=== PATIENT | male | born 1950 | race Caucasian/White ===

== ENCOUNTER 2019-06-27 17:08 | Inpatient (IN) | payer MEDICARE, OTHER ==
[~2019-06-27] VITALS: Ht 185.4 cm; Wt 115.8 kg
--- OUTSIDE RECORDS SUMMARY | 2019-06-27 17:11 | XMS REPORT ---
Author Author [facility] Address Unknown Phone Unavailable Care Team Providers Care Software Quality Test Engineer Name Role Phone Unavailable Unavailable Payers Payer Name Policy Type Policy Number Effective Date Expiration Date Problems This patient has no known problems. Allergies, Adverse Reactions, Alerts Allergy Name Allergy Type Status Severity Reaction(s) Onset Date Inactive Date Treating Clinician Comments No Known Allergies DA Active U 2019-03-15 00:00:00 Medications This patient has no known medications. Results Test Description Test Time Test Comments Text Results Atomic Results Result Comments CBC W/AUTO DIFF 2019-03-17 08:35:00 WHITE BLOOD CELL (test code=WBC) 7.99 x10 3/uL 4.5-11.0 RED BLOOD CELL (test code=RBC) 4.49 x10 6/uL 4.00-5.60 HEMOGLOBIN (test code=HGB) 12.1 g/dL 12.5-16.9 HEMATOCRIT (test code=HCT) 37.0 % 37.5-50.7 MEAN CELL VOLUME (test code=MCV) 82.4 fL 81.0-99.0 MEAN CELL HGB (test code=MCH) 26.9 pg 27.0-33.0 MEAN CELL HGB CONCETRATION (test code=MCHC) 32.7 g/dL 33.0-37.0 RED CELL DISTRIBUTION WIDTH CV (test code=RDW) 13.2 % 11.5-14.5 RED CELL DISTRIBUTION WIDTH SD (test code=RDW-SD) 40.2 fL 37.0-54.0 PLATELET COUNT (test code=PLT) 183 x10 3/uL 150-400 MEAN PLATELET VOLUME (test code=MPV) 10.1 fL 7.0-9.0 NEUTROPHIL % (test code=NT%) 67.7 % 56.0-77.0 IMMATURE GRANULOCYTE % (test code=IG%) 0.4 % 0.0-2.0 LYMPHOCYTE % (test code=LY%) 17.9 % 14.0-32.0 MONOCYTE % (test code=MO%) 10.4 % 4.8-9.0 EOSINOPHIL % (test code=EO%) 3.1 % 0.3-3.7 BASOPHIL % (test code=BA%) 0.5 % 0.0-2.0 NUCLEATED RBC % (test code=NRBC%) 0.0 % 0-0 NEUTROPHIL # (test code=NT#) 5.41 x10 3/uL 2.0-7.6 IMMATURE GRANULOCYTE # (test code=IG#) 0.03 x10 3/uL 0.00-0.03 LYMPHOCYTE # (test code=LY#) 1.43 x10 3/uL 1.0-3.8 MONOCYTE # (test code=MO#) 0.83 x10 3/uL 0.1-0.8 EOSINOPHIL # (test code=EO#) 0.25 x10 3/uL 0.0-0.2 BASOPHIL # (test code=BA#) 0.04 x10 3/uL 0.0-0.2 NUCLEATED RBC # (test code=NRBC#) 0.00 x10 3/uL 0.0-0.1 MANUAL DIFF REQUIRED (test code=MDIFF) NO BASIC METABOLIC [id number] 08:18:00* Test Item Value Reference Range Comments SODIUM (test code=NA) 140 mEq/L 134-147 POTASSIUM (test code=K) 4.1 mEq/L 3.4-5.0 CHLORIDE (test code=CL) 109 mEq/L 100-108 CARBON DIOXIDE (test code=CO2) 25 mEq/L 21-33 ANION GAP (test code=GAP) 10 0-20 GLUCOSE (test code=GLU) 93 mg/dL 70-110 BLOOD UREA NITROGEN (test code=BUN) 14 mg/dL 7-18 GLOMERULAR FILTRATION RATE (test code=GFR) 54.7 80-90 Units of measure=ml/min/1.73 m2 CREATININE (test code=CREAT) 1.3 mg/dL 0.6-1.3 CALCIUM (test code=CA) 8.0 mg/dL 8.0-10.5 PROTHROMBIN [id number] 06:42:00* Test Item Value Reference Range Comments PROTHROMBIN TIME PATIENT (test code=PTP) 13.4 SECONDS 9.3-12.9 INTERNATIONAL NORMAL RATIO (test code=INR) 1.2 0.8-1.2 TARGET INR BY INDICATION Indication INR1. Prophylaxis of venous thrombosis 2.0 - 3.0 (orthopedic surgery), Prophylaxis of venous thrombosis (other than high-risk surgery), Treatment of Deep Vein Thrombosis/Pulmonary Embolism, Prevention of systemic embolism - Tissue heart valves, Acute Myocardial Infarction (to prevent systemic embolism), Valvular heart disease, Atrial Fibrillation, Bileaflet mechanical valve in aortic position.2. Mechanical prosthetic valves (high risk), 2.5 - 3.5 Presence of Lupus Anticoagulant or Antiphospholipid Antibodies, Prevention of systemic embolism - Acute Myocardial Infarction (to prevent recurrent infarct). THROMBOPLASTIN TIME [id number] 06:42:00* Test Item Value Reference Range Comments THROMBOPLASTIN TIME PARTIAL (test code=PTT) 29.4 Seconds 25.0-39.5 Therapeutic Range: 50.4 - 88.3 Seconds Effective 11/27/2018 AG PROSTATE [id number] 15:41:00* Test Item Value Reference Range Comments AG PROSTATE SPECIFIC (test code=PSA) 4.9 ng/mL 0.05-4.0 AG PROSTATE [id number] 15:40:00* Test Item Value Reference Range Comments AG PROSTATE SPECIFIC (test code=PSA) 4.9 ng/mL 0.05-4.0 BASIC METABOLIC [id number] 05:17:00* Test Item Value Reference Range Comments SODIUM (test code=NA) 142 mEq/L 134-147 POTASSIUM (test code=K) 4.0 mEq/L 3.4-5.0 CHLORIDE (test code=CL) 108 mEq/L 100-108 CARBON DIOXIDE (test code=CO2) 26 mEq/L 21-33 ANION GAP (test code=GAP) 12 0-20 GLUCOSE (test code=GLU) 91 mg/dL 70-110 BLOOD UREA NITROGEN (test code=BUN) 19 mg/dL 7-18 GLOMERULAR FILTRATION RATE (test code=GFR) 37.6 80-90 Units of measure=ml/min/1.73 m2 CREATININE (test code=CREAT) 1.8 mg/dL 0.6-1.3 CALCIUM (test code=CA) 7.9 mg/dL 8.0-10.5 CBC W/AUTO [id number] 04:49:00* Test Item Value Reference Range Comments WHITE BLOOD CELL (test code=WBC) 9.90 x10 3/uL 4.5-11.0 RED BLOOD CELL (test code=RBC) 4.85 x10 6/uL 4.00-5.60 HEMOGLOBIN (test code=HGB) 13.0 g/dL 12.5-16.9 HEMATOCRIT (test code=HCT) 40.5 % 37.5-50.7 MEAN CELL VOLUME (test code=MCV) 83.5 fL 81.0-99.0 MEAN CELL HGB (test code=MCH) 26.8 pg 27.0-33.0 MEAN CELL HGB CONCETRATION (test code=MCHC) 32.1 g/dL 33.0-37.0 RED CELL DISTRIBUTION WIDTH CV (test code=RDW) 13.6 % 11.5-14.5 RED CELL DISTRIBUTION WIDTH SD (test code=RDW-SD) 41.3 fL 37.0-54.0 PLATELET COUNT (test code=PLT) 209 x10 3/uL 150-400 MEAN PLATELET VOLUME (test code=MPV) 10.1 fL 7.0-9.0 NEUTROPHIL % (test code=NT%) 63.6 % 56.0-77.0 IMMATURE GRANULOCYTE % (test code=IG%) 0.3 % 0.0-2.0 LYMPHOCYTE % (test code=LY%) 20.5 % 14.0-32.0 MONOCYTE % (test code=MO%) 11.2 % 4.8-9.0 EOSINOPHIL % (test code=EO%) 3.8 % 0.3-3.7 BASOPHIL % (test code=BA%) 0.6 % 0.0-2.0 NUCLEATED RBC % (test code=NRBC%) 0.0 % 0-0 NEUTROPHIL # (test code=NT#) 6.29 x10 3/uL 2.0-7.6 IMMATURE GRANULOCYTE # (test code=IG#) 0.03 x10 3/uL 0.00-0.03 LYMPHOCYTE # (test code=LY#) 2.03 x10 3/uL 1.0-3.8 MONOCYTE # (test code=MO#) 1.11 x10 3/uL 0.1-0.8 EOSINOPHIL # (test code=EO#) 0.38 x10 3/uL 0.0-0.2 BASOPHIL # (test code=BA#) 0.06 x10 3/uL 0.0-0.2 NUCLEATED RBC # (test code=NRBC#) 0.00 x10 3/uL 0.0-0.1 MANUAL DIFF REQUIRED (test code=MDIFF) NO - XR CHEST 2 [id number] 16:54:00 FAX: Nikolay Kumar [phone] [place]: St: ADM FAX: Yaw Donald MD [phone] FAX: Shai Robbins Jr [phone] Name: IRIS SANTA [facility] : 1950 Age/S: 68/M [address] [place] [address] Blvd Unit #: [id number] Loc: [address] [address] Phys: Shai Devlin Jr, MD Acct: [id number] Dis Date: Status: ADM IN ONE #: [phone] Exam Date: 03/15/2019 1648 FAX #: [phone] Reason: Urological Surgery Pre Op EXAMS: CPT CODE: [id number] XR CHEST 2 V 24476 CHEST, SINGLE VIEW HISTORY: Acute kidney injury, preop No compar jose. FINDINGS: There are low lung volumes with basi lar subsegmental atelectasis. The heart is enlarged. Pulmonary vasculari ty is normal. IMPRESSION: 1. Low mack ng volume with bibasilar subsegmental atelectasis. 2. Cardiomegaly. SL:01 at 1654 Reported and signed by: Sukhjinder Sheffield M.D. CC: Nikolay Beltran MD; Yaw Amezcua; Shai Devlin Jr, MD Technologist: Chet Tidwell RT(Femi)R Trnscrd Date/Time/By: 019 (1691) : By: Maxwell Orig Print D/T: S: 03/15/2019 (9314) PAGE 1 Signed Report PTH INTACT [id number] 16:49:00* Test Item Value Reference Range Comments PARATHYROID HORMONE INTACT (test code=PARAI) 80.1 pg/mL 14.0-72.0 URIC [id number] 16:37:00* Test Item Value Reference Range Comments URIC ACID (test code=URIC) 8.8 mg/dL 2.6-7.2 CHEMISTRY 8 [id number] 09:02:00* Test Item Value Reference Range Comments ISTAT-SODIUM (test code=NAP) MMOL/L 134-147 ISTAT-POTASSIUM (test code=KP) MMOL/L 3.4-5.0 ISTAT-CHLORIDE (test code=CLP) MMOL/L 100-108 ISTAT CARBON DIOXIDE (test code=ISTAT-CO2) mmol/L 21-33 ISTAT CALCIUM IONIZED (test code=ISTAT-JULIA) MG/DL 1.12-1.32 ISTAT-GLUCOSE (test code=GLUP) MG/DL 70-110 ISTAT-BUN (test code=BUNP) MG/DL 7-18 BEDSIDE CREATININE (test code=CREATBED) MG/DL 0.6-1.3 GLOMERULAR FILTRATION RATE POC (test code=GFRBED) 49 ML/MIN CHEMISTRY 8 [id number] 09:02:00* Test Item Value Reference Range Comments ISTAT-SODIUM (test code=NAP) 142 MMOL/L 134-147 ISTAT-POTASSIUM (test code=KP) 4.5 MMOL/L 3.4-5.0 ISTAT-CHLORIDE (test code=CLP) 101 MMOL/L 100-108 Performed by certified bias machine operator helper at [facility] ISTAT CARBON DIOXIDE (test code=ISTAT-CO2) 29.0 mmol/L 21-33 ISTAT CALCIUM IONIZED (test code=ISTAT-JULIA) 1.22 MG/DL 1.12-1.32 ISTAT-GLUCOSE (test code=GLUP) 102 MG/DL 70-110 ISTAT-BUN (test code=BUNP) 20 MG/DL 7-18 BEDSIDE CREATININE (test code=CREATBED) 1.5 MG/DL 0.6-1.3 GLOMERULAR FILTRATION RATE POC (test code=GFRBED) 49 ML/MIN - CT ABD PELVIS W/O [id number] 07:12:00 Name: IRIS SANTA [facility] : 1950 Age/S: 68 / M [address] [place] [address] Blvd Unit #: [id number] Loc: [place] [address] Phys: Amita Serrano MD Acct: [id number] Dis Date: Status: PRE ER PHONE #: [phone] Exam Date: 03/15/2019 0643 FAX #: [phone] Reason: llq colicky abd pain EXAMS: CPT CODE: [id number] CT ABD PELVIS W/O CONT 15268 EXAM: CT, CT ABDOMEN PELVIS W/O CONTRAST: 03/15/2019, 0604 hours Clinical Indication: Decreased urination for 2 days. Left lower quadrant colicky abdominal pain. Comparison: None. TECHNIQUE: Noncontrast helical imaging was performed without IV contrast from diaphragm to the symphysis pubis regions. Multiplanar coronal and sagittal reformations are obtained. CT imaging was performed with exposure control parameters to reduce radiation dose. All CT scans at this location are performed using dose optimization techniques as appropriate to perform exam including the following: * Automated exposure control * Adjustment of the mA and /or kV according to patient size (this includes techniques or standardized protocols for targeted exams where dose is matched to indication/reason for exam; e xtremities or head) * Use of iterative reconstruction technique Or al contrast: None. CT Radiation Dose: OEL=815.53 mGy-cm FINDINGS: This examination is limited for the evaluation of solid or kimberley and vascular structures due to withheld intravenous contrast. LOWER CHEST: [Left anterior basilar atelectasis. Possible 2 mm nodule in the right lower lobe seen in the upper most image versus volume ave raging through the end on vessel. NON-CONTRAST ENHANCED SO LID ORGANS: LIVER: Unremarkable. GALLBLADDER: Unremarkable. I NTRAHEPATIC BILE DUCT AND EXTRAHEPATIC BILE DUCT: Unremarkable. PANCREAS: Unremarkable. SPLEEN: Unremarkable. ADRENALS: Unremarkable. KIDNEYS: There is mild to moderate left hydronephrosis. There is ob struction of the proximal left ureter by 5 x 3 mm calcified stone. Left k idney edema with perinephric standing and trace perinephric fluid, likely due to acute obstruction. PAGE 1 Signed Repor t (CONTINUED) Name: IRIS SANTA [facility] : 1950 Age/S: 68 / M [address] [place] [address] Blvd Unit #: [id number] Loc: [place] [address] Phys: Amita Serrano MD Acct: [id number] Dis Date: Status: PRE ER PHONE #: [phone] Exam Date: 03/15/2019642 FAX #: [phone] Reason: llq colicky abd pain EXAMS: CPT C ODE: [id number] CT ABD PELVIS W/O CONT 15019 <Continued> NON-CONTRAST OPACIFIED STOMACH AND BOWEL: STOMACH: Unremarkable. BOWEL: The non-contrast opacified small bowel loops in the abdomen and pelvis appear unremarkable. Sigmoid colon diverticulosis without diverticulitis APPENDIX: Unremarkable. The lack of orally administered contrast material limits bowel assessment. PERITONEUM AND RETROPERITONEUM: No ascites or free air. No other fluid collection. There is no aortic aneurysm seen. LYMPH NODES: Unremarkable. PELVIS: No pelvic mass or adenopathy. Small fat-containing bilateral inguinal hernias. BLADDER: Unremarkable. OSSEOUS STRUCTURES: No acute abnormality seen. SOFT TISSUES: Unremarkable. IMPRESSION: 1. Acute proximal left ureteral obstruction by 5 x 3 mm calcified stone. Mild to moderate left hydronephrosis. 2. Sigmoid diverticulosis. SL: JSYED-H at 0712 Reported and signed by: Shon Tobar M.D. CC: Amita Serrano MD Technologist:Katarina Lopez, RT(R)(CT); Ro CTDI: DLP: Trnscb Date/Time: 03/15/2019 (0712) [email or web address] Orig Print D/T: S: 03/15/2019 (0716) PAGE 2 Signed Report HEPATIC FUNCTION PANEL 2019-03-15 07:01:00* Test Item Value Reference Range Comments TOTAL PROTEIN (test code=PROT) 7.4 g/dL 6.4-8.2 ALBUMIN (test code=ALB) 4.00 g/dL 3.4-5.0 BILIRUBIN TOTAL (test code=BILT) 0.50 mg/dL 0.0-1.0 BILIRUBIN DIRECT (test code=BILD) 0.10 MG/DL 0.0-0.30 BILIRUBIN INDIRECT (test code=BILIND) 0.40 MG/DL SGOT/AST (test code=AST) 27 IUnit/L 15-37 SGPT/ALT (test code=ALT) 30 IUnit/L 15-65 ALKALINE PHOSPHATASE TOTAL (test code=ALKP) 82 IUnit/L 20-125 [id number] 07:01:00* Test Item Value Reference Range Comments LIPASE (test code=LIP) 149 IUnit/L 73-393 URINALYSIS [id number] 06:54:00* Test Item Value Reference Range Comments UA COLOR (test code=COLU) YELLOW YEL/STRAW UA APPEARANCE (test code=APPU) SL CLOUDY CLEAR UA GLUCOSE DIPSTICK (test code=DGLUU) NEGATIVE NEGATIVE UA BILIRUBIN DIPSTICK (test code=BILU) NEGATIVE NEGATIVE UA KETONE DIPSTICK (test code=KETU) NEGATIVE NEGATIVE UA SPECIFIC GRAVITY (test code=SGU) 1.024 1.005-1.030 UA BLOOD DIPSTICK (test code=MARIANO) 2+ NEGATIVE UA PH DIPSTICK (test code=GILDARDO) 5.0 5.0-7.0 UA PROTEIN DIPSTICK (test code=PROU) NEGATIVE NEGATIVE UA UROBILINIOGEN DIPSTICK (test code=URO) 0.2 mg/dL 0.2-1.0 UA NITRITE DIPSTICK (test code=GUSTAVO) NEGATIVE NEGATIVE UA LEUKOCYTE ESTERASE DIPSTICK (test code=LEUU) NEGATIVE NEGATIVE UA WBC (test code=WBCU) 4-9 WBC/HPF 0-3 UA RBC (test code=RBCU) 21-50 RBC/HPF 0-3 UA BACTERIA (test code=BACU) TRACE /HPF NONE SEEN UA SQUAMOUS CELLS (test code=SQU) 0-5 /HPF NONE SEEN UA MUCUS (test code=MUCU) 4+ /LPF NONE SEEN COMMENTS: Clean CatchCBC W/AUTO [id number] 06:44:00* Test Item Value Reference Range Comments WHITE BLOOD CELL (test code=WBC) 9.82 x10 3/uL 4.5-11.0 RED BLOOD CELL (test code=RBC) 5.38 x10 6/uL 4.00-5.60 HEMOGLOBIN (test code=HGB) 14.7 g/dL 12.5-16.9 HEMATOCRIT (test code=HCT) 44.2 % 37.5-50.7 MEAN CELL VOLUME (test code=MCV) 82.2 fL 81.0-99.0 MEAN CELL HGB (test code=MCH) 27.3 pg 27.0-33.0 MEAN CELL HGB CONCETRATION (test code=MCHC) 33.3 g/dL 33.0-37.0 RED CELL DISTRIBUTION WIDTH CV (test code=RDW) 13.9 % 11.5-14.5 RED CELL DISTRIBUTION WIDTH SD (test code=RDW-SD) 41.1 fL 37.0-54.0 PLATELET COUNT (test code=PLT) 248 x10 3/uL 150-400 MEAN PLATELET VOLUME (test code=MPV) 10.0 fL 7.0-9.0 NEUTROPHIL % (test code=NT%) 71.6 % 56.0-77.0 IMMATURE GRANULOCYTE % (test code=IG%) 0.2 % 0.0-2.0 LYMPHOCYTE % (test code=LY%) 17.0 % 14.0-32.0 MONOCYTE % (test code=MO%) 7.4 % 4.8-9.0 EOSINOPHIL % (test code=EO%) 3.2 % 0.3-3.7 BASOPHIL % (test code=BA%) 0.6 % 0.0-2.0 NUCLEATED RBC % (test code=NRBC%) 0.0 % 0-0 NEUTROPHIL # (test code=NT#) 7.03 x10 3/uL 2.0-7.6 IMMATURE GRANULOCYTE # (test code=IG#) 0.02 x10 3/uL 0.00-0.03 LYMPHOCYTE # (test code=LY#) 1.67 x10 3/uL 1.0-3.8 MONOCYTE # (test code=MO#) 0.73 x10 3/uL 0.1-0.8 EOSINOPHIL # (test code=EO#) 0.31 x10 3/uL 0.0-0.2 BASOPHIL # (test code=BA#) 0.06 x10 3/uL 0.0-0.2 NUCLEATED RBC # (test code=NRBC#) 0.00 x10 3/uL 0.0-0.1 MANUAL DIFF REQUIRED (test code=MDIFF) NO CHEMISTRY 8 [id number] 06:31:00* Test Item Value Reference Range Comments ISTAT-SODIUM (test code=NAP) MMOL/L 134-147 ISTAT-POTASSIUM (test code=KP) MMOL/L 3.4-5.0 ISTAT-CHLORIDE (test code=CLP) MMOL/L 100-108 ISTAT CARBON DIOXIDE (test code=ISTAT-CO2) mmol/L 21-33 ISTAT CALCIUM IONIZED (test code=ISTAT-JULIA) MG/DL 1.12-1.32 ISTAT-GLUCOSE (test code=GLUP) MG/DL 70-110 ISTAT-BUN (test code=BUNP) MG/DL 7-18 BEDSIDE CREATININE (test code=CREATBED) MG/DL 0.6-1.3 GLOMERULAR FILTRATION RATE POC (test code=GFRBED) 49 ML/MIN CHEMISTRY 8 [id number] 06:31:00* Test Item Value Reference Range Comments ISTAT-SODIUM (test code=NAP) 139 MMOL/L 134-147 ISTAT-POTASSIUM (test code=KP) 5.0 MMOL/L 3.4-5.0 ISTAT-CHLORIDE (test code=CLP) 101 MMOL/L 100-108 Performed by certified bias machine operator helper at [facility] ISTAT CARBON DIOXIDE (test code=ISTAT-CO2) 30.0 mmol/L 21-33 ISTAT CALCIUM IONIZED (test code=ISTAT-JULIA) 1.11 MG/DL 1.12-1.32 ISTAT-GLUCOSE (test code=GLUP) 115 MG/DL 70-110 ISTAT-BUN (test code=BUNP) 24 MG/DL 7-18 BEDSIDE CREATININE (test code=CREATBED) 1.5 MG/DL 0.6-1.3 GLOMERULAR FILTRATION RATE POC (test code=GFRBED) 49 ML/MIN
--- OUTSIDE RECORDS SUMMARY | 2019-06-27 17:11 | XMS REPORT | Summary of Care ---
Author Author Frieda Cole M.A. Organization Unknown Address [facility] Phone Unavailable Care Team Providers Care Cable Maintainer Name Role Phone BILLIE Leon, JONO Perez Unavailable Frieda Cole M.A. 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.18, I42.2) Status: Active Congenital pectus excavatum (754.81, Q67.6) Status: Active Elevated PSA (790.93, R97.20) Status: Active Encounter for hepatitis C virus screening test for high risk patient (V73.89, Z11.59) Status: Active Mixed hyperlipidemia (272.2, E78.2) Status: Active 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 * Refills: 0 WISE N.P., JONO * Start : 27-Jul-2018 Active Aspirin 81 MG Oral Tablet Delayed Release TAKE 1 TABLET DAILY DIRECTED. * Refills: 0 WISE N.P., JONO * Start : 28-Aug-2018 Active Krill Oil 500 MG Oral Capsule as directed * Refills: 0 WISE N.P., JONO * Start : 28-Aug-2018 Active Fish Oil CAPS TAKE 1 CAPSULE DAILY * Refills: 0 Active Ginkgo Biloba CAPS TAKE 1 CAPSULE EVERY OTHER DAY * Refills: 0 Active Saw [place] CAPS TAKE 1 CAPSULE EVERY OTHER DAY * Refills: 0 Active Mometasone Furoate 0.1 % External Solution APPLY ONLY TO SCALP LESIONS AND RUB IN GENTLY AND COMPLETELY BID. * Quantity: 1 Refills: 5 WISE N.P., JONO * Start : 27-Dec-2018 Active 60 ML Bottle Allergies and Adverse Reactions Name Dates Details LamISIL AT SOLN (Allergy) Status: Active Past Medical History Name Dates Details History of Chronic gout of left knee, unspecified cause (274.02, M1A.0620) Status: Resolved History of folliculitis (V13.3, Z87.2) Status: Resolved History of gout (V12.29, Z87.39) Status: Resolved History of headache (V13.89, Z87.898) Status: Resolved History of hypertension (V12.59, Z86.79) Status: Resolved History of Pre-operative clearance (V72.84, Z01.818) Status: Resolved History of sore throat (V12.60, Z87.09) Status: Resolved Procedures Procedure Dates Details [QLH] URIC ACID Date: 30-Apr-2019 [QLH] PSA (FREE AND TOTAL) Date: 30-Apr-2019 [QLH] CMP W/EGFR Date: 30-Apr-2019 [QLH] TESTOSTERONE, FREE AND TOTAL, LC/MS/MS Date: 30-Apr-2019 History of Tonsillectomy With Adenoidectomy Completed Immunization Name Dates Details Fluzone Quadrivalent 0.5 ML Intramuscular Suspension on: 14-May-2018 Prevnar 13 Intramuscular Suspension on: 14-May-2018 Varicella Disease Comments: childhood Family History Name Dates Details Family history of hypertension (V17.49, Z82.49) Status: Active Name Dates Details Family history of Liver Cancer Status: Active Family history of liver cancer (V16.0, Z80.0) Status: Active Family history of malignant neoplasm (V16.9, Z80.9) Status: Active Name Dates Details Family history of Presence of stent in artery (V49.89, Z95.828) Status: Active Social History Name Dates Details - Status: Name Dates Details Never smoker Vital Signs Date Test Result Details [id number] BP Systolic 115 mm[Hg] Status: Comments: Location: LUE; Position: Sitting BP Diastolic 75 mm[Hg] Status: Comments: Location: LUE; Position: Sitting Height 73 in Status: Weight 254.4375 lb Status: Body Mass Index Calculated 33.57 kg/m2 Status: Body Surface Area Calculated 2.38 m2 Status: Temperature 98.1 f Status: Comments: Method: Temporal Heart Rate 74 /min Status: Respiration Rate 14 /min Status: Physical Findings 0 Status: Comments: Alcohol Screen - How many times in the past yr have you had 5 (for M) or 4 (for F) or 4 (for all > 65yrs) or more drinks in a day? Physical Findings 2 Status: Comments: PHQ-9 Adult Depression Screening Results Date Description Value Details [id number] XRAY Chest 2 views 53651 Chest 2 views SEE NOTES Comments: EXAM: XR CHEST 2 VIEWSDATE: 04/30/2019 13:39 CDTINDICATION: - R06.02 Shortness of breathCOMPARISON: None.TECHNIQUE: PA and lateral chest radiographsFINDINGS:Lines and tubes: None.Lungs and pleura: Slightly low lung volumes with accentuated vascular markingsand bibasilar atelectasis.Mild prominent perihilar reticulations.Otherwise, no large consolidations.No pleural effusions or pneumothorax.Biapical scarring.Heart and mediastinum: The cardiac silhouette is within normal limits incaliber with tortuous thoracic aorta.Bones: Mild degenerative changes of the thoracic spine.Soft tissues: Unremarkable.IMPRESSION:* Slightly low lung volumes with accentuated vascular markings and bibasilaratelectasis.* Mild perihilar reticulations could represent atypical infection or reactiveairway disease. Otherwise, no consolidations.* No definite pleural effusions or pneumothorax.--Read by: Yordan Sood MD PHDDictated Date/time: 04/30/19 14:49Electronically Signed by: Yordan Sood MD 04/30/1914:51FINAL REPORT Plan of Care Name Dates Details Planned Observations Planned Goals not documented Instructions Name Dates Details Instructions not documented Encounters Appointment; JONO WISE NP Encounter Diagnosis: Problem not documented On: 27-Jul-2018 13:30 Appointment; JONO WISE NP Encounter Diagnosis: Problem not documented On: 28-Aug-2018 13:00 Appointment; LEWIS SHARP Encounter Diagnosis: Problem not documented On: 30-Aug-2018 10:00 Appointment; NEERAJ VERDE M.D. Encounter Diagnosis: Problem not documented On: 31-Aug-2018 10:40 Appointment; JONO WISE NP Encounter Diagnosis: Problem not documented On: 27-Nov-2018 12:30 Appointment; JONO WISE NP Encounter Diagnosis: Problem not documented On: 27-Dec-2018 14:30 Appointment; CATHERINE MARTEL P.A. Encounter Diagnosis: Problem not documented On: 03-Jan-2019 11:15 Appointment; JONO WISE NP Encounter Diagnosis: Problem not documented On: 30-Apr-2019 12:30
[2019-06-27] MEDS ORDERED: SODIUM CHLORIDE 0.9% 1000ML 1,000 ML IV STA (17:40)
[2019-06-27] MEDS ORDERED: ONDANSETRON HCL INJ 2MG/ML 2ML 2 MG/ML VIAL IV ONE (17:40)
[2019-06-27] MEDS ORDERED: MORPHINE SULFATE 5 MG/ML VIAL IV ONE (17:45)
[2019-06-27] MEDS ORDERED: MORPHINE SULFATE INJ 4 MG/ML INJ 1ML IV ONE (17:45)
[2019-06-27 17:55] LABS: BASOPHILS # (AUTO) 0.1 (0.0-0.1); BASOPHILS % 0.5 % (0.0-1.0); EOSINOPHILS # (AUTO) 0.2 (0.0-0.4); EOSINOPHILS % 1.4 % (0.0-6.0); HEMATOCRIT 44.1 % (38.2-49.6); HEMOGLOBIN 15.1 g/dL (14.0-18.0); LYMPHOCYTES # (AUTO) 1.5 (1.0-3.2); LYMPHOCYTES % 12.5 % (18.0-39.1); MEAN CORPUSCULAR HEMOGLOBIN 27.3 pg (28-32); MEAN CORPUSCULAR HGB CONC 34.2 g/dL (31-35); MEAN CORPUSCULAR VOLUME 79.7 fL (81-99); MONOCYTES # (AUTO) 0.9 (0.2-0.8); MONOCYTES % 7.6 % (4.4-11.3); NEUTROPHILS # (AUTO) 9.2 (2.1-6.9); NEUTROPHILS % 77.7 % (38.7-80.0); PLATELET COUNT 242 x10e3/uL (140-360); RED BLOOD COUNT 5.53 x10e6/uL (4.3-5.7); RED CELL DISTRIBUTION WIDTH 13.7 % (11.7-14.4)
[2019-06-27 17:59] LABS: BILIRUBIN,URINE NEGATIVE (NEGATIVE); CLARITY,URINE CLEAR (CLEAR); COLOR,URINE YELLOW (YELLOW); KETONES,URINE NEGATIVE (NEGATIVE); LEUKOCYTE ESTERASE ,URINE NEGATIVE (NEGATIVE); NITRITE,URINE NEGATIVE (NEGATIVE); PROTEIN,URINE DIPSTICK NEGATIVE (NEGATIVE); URINE UROBILINOGEN 0.2 mg/dL (0.2 - 1)
[2019-06-27 18:13] LABS: ALBUMIN/GLOBULIN RATIO 1.2 (0.8-2.0); ANION GAP 13.7 mmol/L (8-16); CALCIUM 9.5 mg/dL (8.4-10.2); CREATININE, SERUM 1.54 mg/dL (0.72-1.25); MAGNESIUM 1.8 MG/DL (1.3-2.1); POTASSIUM 3.7 mmol/L (3.5-5.1)
[2019-06-27 18:14] LABS: BACTERIA,URINE RARE /HPF; EPITHELIAL CELLS,URINE RARE /LPF
--- NOTE | 2019-06-27 19:02 | NUR ---
Report to PHIL Duron
--- NOTE | 2019-06-27 19:10 | Diagnostic Imaging Report ---
EXAM: CT Abdomen and Pelvis WITHOUT contrast INDICATION: Abdominal pain. Kidney stone. COMPARISON: None. TECHNIQUE: Abdomen and pelvis were scanned utilizing a multidetector helical scanner from the lung base to the pubic symphysis without administration of IV contrast. Absence of intravenous contrast decreases sensitivity for detection of focal lesions and vascular pathology. Coronal and sagittal reformations were obtained. Routine protocol was performed. IV CONTRAST: None ORAL CONTRAST: None COMPLICATIONS: None RADIATION DOSE: Total DLP: 782 mGy*cm Estimated effective dose: (DLP x 0.015 x size factor) mSv CTDIvol has been reviewed. It is below the limits set by the Radiation Protocol Committee (RPC). Dose modulation, iterative reconstruction, and/or weight based adjustment of the mA/kV was utilized to reduce the radiation dose to as low as reasonably achievable. FINDINGS: LINES and TUBES: None. LOWER THORAX: Chronic appearing change at the lung bases HEPATOBILIARY: No focal hepatic lesions. No biliary ductal dilation. GALLBLADDER: No radio-opaque stones or sludge. No wall thickening. SPLEEN: No splenomegaly. PANCREAS: No focal masses or ductal dilatation. ADRENALS: No adrenal nodules KIDNEYS/URETERS: 6.4 mm obstructing stone in the distal left ureter with left-sided hydronephrosis and hydroureter. Left-sided perinephric fat stranding. No cystic or solid mass lesions. GI TRACT: No abnormal distention, wall thickening, or evidence of bowel obstruction. Appendix is normal. Scattered diverticulosis without evidence of diverticulitis PELVIC ORGANS/BLADDER: Unremarkable. LYMPH NODES: No lymphadenopathy. VESSELS: Unremarkable. PERITONEUM / RETROPERITONEUM: No free air or fluid. BONES: Unremarkable. SOFT TISSUES: Unremarkable. IMPRESSION: 1. 6.4 mm obstructing stone in the distal left ureter with left-sided hydronephrosis and hydroureter. Left-sided perinephric fat stranding. Signed by: Dr. Dixon Prasad M.D. on 06/27/2019 7:07 PM
[2019-06-27] MEDS ORDERED: MORPHINE SULFATE 2 MG/ML SYR 1ML ONE (19:27)
[2019-06-27] MEDS ORDERED: CEFTRIAXONE SOD 1 GM/NS 50 ML 50 ML IV SCH (20:00)
[2019-06-27] MEDS ORDERED: ONDANSETRON HCL INJ 2MG/ML 2ML 2 MG/ML VIAL IV PRN (20:30)
[2019-06-27] MEDS: HYDROMORPHONE 1MG/1ML INJ IV PRN (20:40)
--- NOTE | 2019-06-27 21:13 | NUR ---
Patient arrived to the unit via stretcher from ED as new admit. Patient alert and oriented x3. Admitting diagnosis is Uterolithiasis. Pt ambulatory in room prn. On IVF (NS at 100ml/hr). Pt on pain management and aware to be NPO at midnight. Call manzo within reach.
[2019-06-27] MEDS: SODIUM CHLORIDE 0.9% 1000ML 1,000 ML IV SCH (21:15)
[2019-06-27 21:39] VITALS: BP 154/71
[2019-06-27 22:00] VITALS: BP 154/71
[2019-06-28] VITALS: BP 120/60
[2019-06-28 04:00] VITALS: BP 118/54
[2019-06-28] MEDS: HYDROMORPHONE 1MG/1ML INJ IV PRN ×2 (05:39)
[2019-06-28] MEDS ORDERED: BENICAR20 MG PO (07:17)
[2019-06-28] MEDS ORDERED: ASPIRIN81 MG PO (07:18)
[2019-06-28] MEDS ORDERED: FLOMAX0.4 MG PO (07:19)
--- NOTE | 2019-06-28 07:40 | NUR ---
PATIENT IS AWAKE AND IN STABLE CONDITION WITH NO S/S OF RESPIRATORY DISTRESS. NO PAIN VOICED. IV FLUIDS INFUSING. PRESENT IN ROOM. CALL LIGHT IS WITHIN REACH, PATIENT INSTRUCTED TO CALL FOR ASSISTANCE NEEDED.
[2019-06-28 07:45] VITALS: BP 121/65
--- NOTE | 2019-06-28 07:56 | NUR ---
PATIENT AMBULATING IN THE HALLWAY
[2019-06-28] MEDS: SODIUM CHLORIDE 0.9% 1000ML 1,000 ML IV SCH ×2 (08:02→15:11)
[2019-06-28] MEDS ORDERED: OLMESARTAN MEDOXOMIL 5 MG TABLET PO SCH (09:00)
[2019-06-28] MEDS ORDERED: TAMSULOSIN HCL 0.4 MG CAP PO SCH (09:00)
[2019-06-28 10:31] VITALS: BP 121/65
--- NOTE | 2019-06-28 10:53 | NUR ---
DR. HUNTER ON THE UNIT- NEW ORDERS RECEIVED TO PLACE PATIENT ON A CARDIAC DIET, RESUME FLUIDS AT A CHANGE RATE OF 125CC/HR, AND CALL DR. HUNTER WITH 1500 KUB RESULTS. ORDER TO CONTINUE TO STRAIN URINE.
[2019-06-28 11:49] VITALS: BP 128/75
--- NOTE | 2019-06-28 15:29 | Diagnostic Imaging Report ---
Exam: KUB - 2 views Indication: Renal calculus Comparison: CT abdomen and pelvis of 06/27/2019 Findings: There is an 8.6 mm calcific density overlying the left sacrum that corresponds with the size and location of the previously identified left distal ureteral calculus seen on the CT of 06/27/2019. No other radiographically apparent urinary calculi. Nonobstructive bowel gas pattern. No free air. The osseous structures appear unremarkable. Impression: 8.6 mm calcific density in the left pelvis corresponds with size and location of the previously seen left distal ureteral calculus. Signed by: Jamal Gomez MD on 06/28/2019 3:26 PM
[2019-06-28 15:39] VITALS: BP 154/80
--- NOTE | 2019-06-28 17:45 | Consultation ---
DATE OF CONSULTATION: 06/28/2019 Urologic consultation. Consultation is called by Dr. Noland in the emergency room. CHIEF UROLOGIC COMPLAINT AND REASON FOR RECONSULTATION: Kidney stones. HISTORY OF PRESENT ILLNESS: Mr. Shrestha is a 68-year-old male patient, who has previously seen Dr. Devlin for BPH, elevated PSA and kidney stones. The patient has passed a prior 3 x 5 mm stone on the same side. He denies dysuria, remote gross hematuria. PAST MEDICAL HISTORY: As above. Elevated PSA, BPH, stones, hypertension, status post prostate biopsy, status post tonsillectomy, and adenoidectomy. MEDICATIONS: Please see MAR. ALLERGIES: NKDA. SOCIAL HISTORY: Denied smoking or drinking. FAMILY HISTORY: Denied urologic stones or malignancies. REVIEW OF SYSTEMS: Noncontributory other than problems mentioned above for 12 organ systems. PHYSICAL EXAMINATION: General: Elderly male, in no acute distress. VITAL SIGNS: Currently, he is afebrile. Vital signs are stable. Sclerae anicteric. NECK: Supple. BACK: Without costovertebral bilaterally. ABDOMEN: Soft, it is nontender, it is nondistended. No palpable mass. No palpable hernias. No palpable groin lymphadenopathy. : Normal male external genitalia. EXTREMITIES: No edema. NEURO: Moves all four extremities. PSYCH: Alert and mood appropriate. SKIN: Intact. Normal color. PERTINENT LABORATORY DATA: CT scan revealing a 6 mm left ureterovesical junction stone, left hydronephrosis, moderate perinephric stranding. Hemoglobin 15, hematocrit 44, platelet count 242,000, and white cell count 11,180. Sodium 137, potassium 3.7, chloride 99, bicarb 28, BUN 14, creatinine 1.54, glucose 107. Urinalysis, 15 to 20 reds. IMPRESSION: 1. Left ureteral calculus. 2. Left-sided hydronephrosis. 3. Left renal colic. 4. Microscopic hematuria. 5. Elevated PSA. 6. Benign prostatic hypertrophy. PLAN: We will employ a brief trial of passage. Should this fail, the patient will need stenting. Thank you for allowing me to participate in the care of your patient. I will be happy to follow along with you. MD ROSALBA Emmanuel/NIRU Mclaughlin: 06/28/2019 10:53:28 /[id number] cc: MD Yaw Barrientos MD
--- NOTE | 2019-06-28 18:05 | NUR ---
CALL PLACED OUT TO DR. HUNTER REGARDING KUB RESULTS - AWAITING CALLBACK.
--- NOTE | 2019-06-28 18:16 | NUR ---
RECEIVED CALL FROM DR. HUNTER- DR. HUNTER INFORMED OF KUB RESULTS. INFORMED PATIENT OF DR. HUNTER'S REMARKS REGARDING KUB RESULTS AND POSSIBLE STENT PLACEMENT IF NEEDED FOR MONDAY. DR. HUNTER WILL SPEAK WITH PATIENT TOMORROW.
--- NOTE | 2019-06-28 18:40 | NUR ---
PATIENT IS WANTING TO GO AMA SINCE NO PROCEDURE IS TO BE DONE AT THIS TIME. PATIENT STATED RN COULD CALL AND DISCUSS WITH DR. HUNTER ON HIM WANTING TO LEAVE EVEN IF THERE IS NO DISCHARGE. CALL PLACED OUT TO DR. HUNTER- AWAITING CALLBACK.
--- NOTE | 2019-06-28 19:19 | NUR ---
PATIENT SIGNED AMA PAPERWORK. RECEIVED CALLBACK FROM DR. HUNTER- DR. HUNTER AWARE PATIENT SIGNED AMA PAPERWORK AND WILL F/U WITH HIM AN OUTPATIENT. CALL PLACED OUT TO DR. LUGO TO INFORM OF PATIENT AMA STATUS-AWAITING CALLBACK.
--- NOTE | 2019-06-28 19:25 | NUR ---
RECEIVED CALL FROM DR. LUGO. DR. LUGO INFORMED OF PATIENT LEAVING AGAINST MEDICAL ADVICE. PATIENT WAS UNWILLING TO WAIT FOR STENT PLACEMENT WHILE IN THE HOSPITAL AND WANTED TO HAVE THE PROCEDURE DONE AN OUTPATIENT AND WILL F/U WITH DR. HUNTER AN OUTPATIENT. PATIENT OFF THE UNIT AT 1919 PER AMBULATION WITH HIS FAMILY AND HIS PERSONAL BELONGINGS.
== END 2019-06-28 19:20 | disposition left against medical advice (07) | DRG 694 ==
LOC: ER 17:08 → ERHOLD 20:19 → MED/SURG2 21:13
PROVIDERS: ADMIT Internal Medicine; ATTEND Internal Medicine
DX: N13.2 Hydronephrosis with renal and ureteral calculous obstruction (principal); I10 Essential (primary) hypertension; N40.0 Benign prostatic hyperplasia without lower urinary tract symptoms; R31.29 Other microscopic hematuria
CPT/HCPCS: 36415; 74018; 74176; 80053; 81001; 83735; 85025; 87086; 99284; J0696; J1170; J2270; J2405; J7030